=== PATIENT | male | born 1980 | race Caucasian/White ===

== ENCOUNTER 2016-07-14 16:00 | Outpatient (RCR) | payer OTHER ==
[~2016-07-14 16:00] MED LIST: IMIT100T PO; NAPR500T2 PO; NORT25CA2 PO; TOPA50TA PO
== END 2016-07-15 ==
LOC: M OUTALCOH 16:00
PROVIDERS: ATTEND Psychiatry & Neurology Psychiatry
DX: F10.20 Alcohol dependence, uncomplicated (principal)

== ENCOUNTER 2016-08-06 09:00 | Outpatient (RCR) | payer OTHER | END 2016-08-12 | LOC: M OUTALCOH 09:00 | PROVIDERS: ATTEND Psychiatry & Neurology Psychiatry | DX: F10.20 Alcohol dependence, uncomplicated (principal) ==

== ENCOUNTER → 2017-05-25 | Outpatient (CLI) | payer BC ==
--- NOTE | 2017-05-25 14:17 | REP ---
LUMBAR SPINE SERIES: Five views. HISTORY: Low back injury. Pain. FINDINGS: Lumbar vertebral body heights are preserved. No fracture or collapse is seen. There is mild degenerative disc narrowing at L 2-3, L3-4, and L4-5. There is discogenic spurring at L3-4. Pedicles and posterior elements are intact. There is no evidence of spondylolysis or spondylolisthesis. Psoas margins are symmetric. Sacrum and SI joints are intact. IMPRESSION: Degenerative disc disease at the L3-4 L4-5 and L2-3. No other abnormality. Signed by Misael Valdivia MD 05/25/2017 03:04 P
== END ==
LOC: M WUC 12:42
PROVIDERS: ATTEND Physician Assistant
DX: M51.9 Unspecified thoracic, thoracolumbar and lumbosacral intervertebral disc disorder (principal)

== ENCOUNTER 2017-12-26 00:01 | Emergency (ER) | payer BC, OTHER ==
[2017-12-26 01:19] LABS: BASO # 0.1 10^3/uL (0.0-0.2); BASO % 0.6 % (0.0-1.0); EOS # 0.4 10^3/uL (0.0-0.50); EOS % 4.9 % (0.0-3.0); HEMATOCRIT 46.3 % (42.0-52.0); HEMOGLOBIN 15.7 g/dl (13.5-17.5); IMMATURE GRANULOCYTE % 0.3 % (0-3.0); LYMPH # 2.3 10^3/uL (1.5-4.5); LYMPH % 25.8 % (24.0-44.0); MEAN CORPUSCULAR HEMOGLOBIN 31.1 pg (27.0-33.0); MEAN CORPUSCULAR HGB CONC 33.9 g/dl (32.0-36.5); MEAN CORPUSCULAR VOLUME 91.7 fl (80.0-96.0); MONO # 0.5 10^3/uL (0.0-0.8); MONO % 5.2 % (0.0-5.0); NEUTROPHILS # 5.7 10^3/uL (1.8-7.7); NEUTROPHILS % 63.2 % (36.0-66.0); PLATELET COUNT, AUTOMATED 172 10^3/uL (150-450); RED BLOOD COUNT 5.05 10^6/uL (4.30-6.10); RED CELL DISTRIBUTION WIDTH 12.3 % (11.5-14.5); WHITE BLOOD COUNT 9.1 10^3/uL (4.0-10.0)
[2017-12-26] MEDS: ONDANSETRON 4MG/2ML VIAL (J2405) IV (01:28)
[2017-12-26] MEDS: MORPHINE 4 MG/ML 1ML VIAL/SYRINGE (J2270) IV ×2 (01:28→02:03)
[2017-12-26 01:45] LABS: ANION GAP 5 MEQ/L (8-16); BLOOD UREA NITROGEN 17 MG/DL (7-18); C REACTIVE PROTEIN QUANTITATIV < 0.30 MG/DL (0.00-0.30); CALCIUM LEVEL 8.7 MG/DL (8.5-10.1); CARBON DIOXIDE LEVEL 29 MEQ/L (21-32); CHLORIDE LEVEL 108 MEQ/L (98-107); CREATININE FOR GFR 1.19 MG/DL (0.70-1.30); GLOMERULAR FILTRATION RATE > 60.0 (>60); GLUCOSE, FASTING 101 MG/DL (70-100); SODIUM LEVEL 142 MEQ/L (136-145)
[2017-12-26] MEDS ORDERED: ISOVUE-370 76% 100ML VIAL (Q9967) As Ordered (01:50)
[2017-12-26] MEDS: methylPREDNISolone INJ 125 MG/2 ML VIAL (J2930) IV (03:34)
== END 2017-12-26 03:55 | disposition home or self-care (01) ==
LOC: M ED 00:01
DX: R51 Headache (principal); Z79.2 Long term (current) use of antibiotics
CPT/HCPCS: J2270

== ENCOUNTER → 2018-02-03 | Outpatient (CLI) | payer BC, OTHER | LOC: M RAD 15:00 | DX: G50.0 Trigeminal neuralgia (principal); G43.019 Migraine without aura, intractable, without status migrainosus | CPT/HCPCS: 70551 ==

== ENCOUNTER 2018-06-03 06:55 | Day surgery (SDC) | payer BC, OTHER ==
[2018-06-03] MEDS: LR 1,000 ML IV (08:10)
[2018-06-03] MEDS ORDERED: MIDAZOLAM INJ 2 MG/2 ML VIAL (J2250) As Ordered (08:10)
[2018-06-03] MEDS ORDERED: ONDANSETRON 4MG/2ML VIAL (J2405) As Ordered (08:11)
[2018-06-03] MEDS ORDERED: fentaNYL 100 MCG/2 ML INJECTION (J3010) As Ordered (08:11)
[2018-06-03] MEDS ORDERED: dexameTHASONE 4 MG/ML 1ML VIAL (J1100) As Ordered ×2 (08:11)
[2018-06-03] MEDS ORDERED: LIDOCAINE 2% INJ 100 MG/5 ML SDV (FOR ANES.) As Ordered (08:11)
[2018-06-03] MEDS ORDERED: ROCURONIUM BROMIDE 50 MG/5 ML VIAL As Ordered (08:11)
[2018-06-03] MEDS: METHYLENE BLUE 0.5% (5MG/ML) 10 ML AMP (PROVAYBLUE)(Q9968 PER 1MG) As Ordered (09:06)
[2018-06-03] MEDS: EPINEPHrine 1MG/ML INJ 30ML MD-VIAL As Ordered (09:06)
[2018-06-03] MEDS ORDERED: ESMOLOL INJ 100MG/10ML VIAL As Ordered (09:18)
[2018-06-03] MEDS: LIDOCAINE W/EPINEPHRINE 1% 20ML VIAL As Ordered (09:19)
[2018-06-03] MEDS ORDERED: PERCOCET 5MG/325MG TAB As Ordered (09:58)
[2018-06-03] MEDS ORDERED: ONDANSETRON 4MG/2ML VIAL (J2405) IV (10:00)
[2018-06-03] MEDS: PERCOCET 5MG/325MG TAB PO ×2 (10:00→10:37)
[2018-06-03] MEDS ORDERED: LR 1,000 ML IV ×2 (10:00)
[2018-06-03] MEDS ORDERED: ACETAMINOPH W/CODEINE #3 TAB UD PO (10:00)
[2018-06-03] MEDS ORDERED: MORPHINE 10 MG/ML 1ML VIAL (J2270) IV (10:00)
[2018-06-03] MEDS: fentaNYL 100 MCG/2 ML INJECTION (J3010) IV ×4 (10:23→10:40)
== END 2018-06-03 11:37 | disposition home or self-care (01) ==
LOC: M SDC 06:55
DX: J34.2 Deviated nasal septum (principal); R06.83 Snoring; Z72.0 Tobacco use
CPT/HCPCS: 30520

== ENCOUNTER → 2018-08-12 | Outpatient (REF) | payer OTHER ==
[~2018-08-12] MED LIST changes: +APAP/CODEINE; +GABA-845 PO; +PENI500T; +PRED20TA PO
[2018-08-12 12:08] LABS: BASO # 0.1 10^3/uL (0.0-0.2); BASO % 0.9 % (0.0-1.0); EOS # 0.6 10^3/uL (0.0-0.50); EOS % 8.7 % (0.0-3.0); HEMATOCRIT 48.1 % (42.0-52.0); HEMOGLOBIN 16.7 g/dl (13.5-17.5); LYMPH # 2.1 10^3/uL (1.5-4.5); LYMPH % 29.7 % (24.0-44.0); MEAN CORPUSCULAR HEMOGLOBIN 31.4 pg (27.0-33.0); MEAN CORPUSCULAR HGB CONC 34.7 g/dl (32.0-36.5); MEAN CORPUSCULAR VOLUME 90.4 fl (80.0-96.0); MONO # 0.4 10^3/uL (0.0-0.8); NEUTROPHILS # 3.9 10^3/uL (1.8-7.7); NEUTROPHILS % 55.6 % (36.0-66.0); PLATELET COUNT, AUTOMATED 183 10^3/uL (150-450); RED BLOOD COUNT 5.32 10^6/uL (4.30-6.10)
[2018-08-12 12:29] LABS: ALT/SGPT 31 U/L (12-78); BILIRUBIN,TOTAL 0.3 MG/DL (0.2-1.0); BLOOD UREA NITROGEN 12 MG/DL (7-18); CALCIUM LEVEL 8.8 MG/DL (8.5-10.1); CARBON DIOXIDE LEVEL 26 MEQ/L (21-32); CHLORIDE LEVEL 109 MEQ/L (98-107); CREATININE FOR GFR 0.96 MG/DL (0.70-1.30); FOLATE 13.7 NG/ML (>5.4); GLOMERULAR FILTRATION RATE > 60.0 (>60); GLUCOSE, FASTING 89 MG/DL (70-100); POTASSIUM SERUM 4.2 MEQ/L (3.5-5.1); RHEUMATOID FACTOR QUANT < 10.0 IU/ML (<15.0); SODIUM LEVEL 142 MEQ/L (136-145); THYROID STIMULATING HORMONE 0.775 uIU/ML (0.358-3.740); TOTAL PROTEIN 6.9 GM/DL (6.4-8.2); VITAMIN B12 LEVEL 415 PG/ML (247-911)
[2018-08-12 12:37] LABS: ERYTHROCYTE SEDIMENTATION RATE 3 mm/hr (0-15)
[2018-08-12 13:11] LABS: HEMOGLOBIN A1c 5.4 %
== END ==
LOC: M LABDRAW1 10:21
PROVIDERS: ATTEND Psychiatry & Neurology Neurology
DX: R51 Headache (principal); G62.9 Polyneuropathy, unspecified

== ENCOUNTER → 2018-09-12 | Outpatient (CLI) | payer BC, OTHER ==
--- NOTE | 2018-09-16 20:35 | SLEEPCENT ---
DATE OF PROCEDURE: 09/12/2018 ORDERED BY: Kelsey Quiros Nocturnal polysomnography was performed for evaluation of sleep apnea syndrome symptoms in this patient with a history of snoring and excessive somnolence. 6 hours and 54 minutes of data were reviewed. There were 375 minutes of sleep identified. Sleep latency was mildly prolonged at 21 minutes. Rapid eye movement (REM) latency was normal at 83 minutes. Sleep architecture was fairly good with three REM cycles. Overall sleep efficiency 91.5%. The electrocardiogram shows a sinus rhythm with an average heart rate of 64 beats per minute. Rate ranged 58 to 82. EEG showed normal waveforms for awake and sleep. There were 42 respiratory events identified of 10 seconds in duration or greater for an apnea-hypopnea index of 6.7. The events were primarily obstructive, not exclusive to sleep stage nor to body posture. Arousals from respiratory events occurred 12.2 times per hour when snoring arousals were included, and there was some scattered limb activity but limb arousals were few. Oxygen desaturations were seen into the mid 80s. IMPRESSION: Obstructive sleep apnea syndrome (G47.33). Apnea-hypopnea index 6.7. RECOMMENDATIONS: The patient should be considered for pressure therapy or definitive treatment for obstructive sleep apnea syndrome. In the interim, alcohol and sedative avoidance should be practiced and caution exercised during the operation of motor vehicles.
== END ==
LOC: M SLEEP 20:00
PROVIDERS: ATTEND Nurse Practitioner Family
DX: G47.33 Obstructive sleep apnea (adult) (pediatric) (principal)

== ENCOUNTER → 2018-10-25 | Outpatient (CLI) | payer BC, OTHER ==
--- NOTE | 2018-10-27 08:58 | SLEEPCENT ---
DATE OF PROCEDURE: 10/25/2018 ORDERED BY: 10/26/2018 Nocturnal polysomnography was performed for the titration of pressure therapy in this patient with obstructive sleep apnea syndrome. Apnea-hypopnea index 6.7. For testing, a [employer] Overnight FX nasal pillows device was used, 4 cm of water pressure were applied to the circuit, and the lights were extinguished. 7 hours and 54 minutes of data were reviewed. There were 346 minutes of sleep identified. Sleep latency was prolonged and 41 minutes. Rapid eye movement (REM) latency was normal at 73 minutes. Sleep architecture was fair with two to three REM cycles. Overall sleep efficiency was 74.2%. The electrocardiogram showed a sinus rhythm with an average heart rate of 68 beats per minute. Electroencephalogram (EEG) showed normal waveforms for awake and sleep. Respiratory events were best palliated with C-PAP at a pressure of +5. The remaining measures of sleep physiology were normal. IMPRESSION: Obstructive sleep apnea syndrome (G47.33). RECOMMENDATIONS: Nightly use of pressure therapy 5 cm of water.
== END ==
LOC: M SLEEP 20:00
PROVIDERS: ATTEND Nurse Practitioner Family
DX: G47.33 Obstructive sleep apnea (adult) (pediatric) (principal)

== ENCOUNTER → 2019-11-18 | Outpatient (REF) | payer OTHER ==
[2019-11-18 13:48] LABS: CHLAMYDIA DNA AMPLIFICATION NEGATIVE (NEGATIVE); GC DNA AMPLIFICATION NEGATIVE (NEGATIVE)
== END ==
LOC: M LAB REF 11:40
PROVIDERS: ATTEND Physician Assistant
DX: R30.0 Dysuria (principal)

== ENCOUNTER → 2019-11-25 | Outpatient (CLI) | payer BC ==
--- NOTE | 2019-11-25 09:49 | REP ---
SCROTAL ULTRASOUND: Real-time sonographic evaluation of the scrotum and contents performed. The testicles are normal in size and echotexture, right testicle measuring 5.3 x 2.5 x 3.4 cm and left testicle 4.6 x 2.3 x 3.3 cm. There is no testicular mass. There is no torsion of either testicle with duplex Doppler evaluation. There is a cyst in the head of the right epididymis measuring 4 mm. No fluid collection is seen. IMPRESSION: No testicular mass or torsion.
== END ==
LOC: M WHC 08:26
PROVIDERS: ATTEND Physician Assistant
DX: N50.819 Testicular pain, unspecified (principal); R30.0 Dysuria

== ENCOUNTER 2023-05-16 18:05 | Inpatient (IN) | payer BC ==
[~2023-05-16] VITALS: Ht 185.4 cm; Wt 113.6 kg
[~2023-05-16 18:05] MED LIST changes: +GABA-284 PO; -GABA-845 PO
[2023-05-16] MEDS ORDERED: NS 1,000 ML IV ONE (18:40)
[2023-05-16] MEDS ORDERED: MORPHINE 4 MG/ML 1ML VIAL IV ONE (18:40)
[2023-05-16] MEDS ORDERED: LevoFLOXacin IV 750 MG in IV 1 EA IV ONE (18:45)
[2023-05-16] MEDS ORDERED: ACETAMINOPHEN *IV* 1,000 MG in IV 1 EA IV ONE (18:45)
[2023-05-16 19:09] LABS: BASO % 0.3 % (0.0-1.0); EOS # 0.1 10^3/uL (0.0-0.5); EOS % 0.6 % (0.0-3.0); HEMATOCRIT 46.5 % (42.0-52.0); HEMOGLOBIN 16.1 g/dl (13.5-17.5); LYMPH # 1.1 10^3/uL (1.5-5.0); LYMPH % 11.5 % (24.0-44.0); MEAN CORPUSCULAR HEMOGLOBIN 32.5 pg (27.0-33.0); MEAN CORPUSCULAR HGB CONC 34.6 g/dl (32.0-36.5); MEAN CORPUSCULAR VOLUME 93.9 fl (80.0-96.0); MONO # 0.8 10^3/uL (0.0-0.8); MONO % 7.7 % (2.0-8.0); NEUTROPHILS # 7.7 10^3/uL (1.5-8.5); NEUTROPHILS % 79.7 % (36.0-66.0); PLATELET COUNT, AUTOMATED 175 10^3/uL (150-450); RED BLOOD COUNT 4.95 10^6/uL (4.30-6.10); WHITE BLOOD COUNT 9.7 10^3/uL (4.0-10.0)
[2023-05-16] MEDS ORDERED: ISOVUE-370 76% 100ML VIAL As Ordered ONE (19:13)
[2023-05-16 19:29] LABS: INR 1.03; PROTHROMBIN TIME 13.2 SECONDS (12.5-14.5)
[2023-05-16 19:38] LABS: LIPASE 25 U/L (12-53)
[2023-05-16 19:40] LABS: ALBUMIN 3.7 G/DL (3.2-5.2); ALKALINE PHOSPHATASE 68 U/L (46-116); ALT/SGPT 31 U/L (7.0-40); AST/SGOT 12 U/L (<34); BILIRUBIN,DIRECT 0.3 MG/DL (<0.4); BLOOD UREA NITROGEN 12 MG/DL (9-23); CALCIUM LEVEL 9.1 MG/DL (8.5-10.1); CARBON DIOXIDE LEVEL 24 MMOL/L (20-31); CHLORIDE LEVEL 108 MMOL/L (98-107); CREATININE FOR GFR 1.09 MG/DL (0.70-1.30); GLOMERULAR FILTRATION RATE > 60.0 (>60); GLUCOSE, FASTING 121 MG/DL (60-100); POTASSIUM SERUM 3.9 MMOL/L (3.5-5.1); SODIUM LEVEL 142 MMOL/L (136-145); TOTAL PROTEIN 6.6 G/DL (5.7-8.2)
[2023-05-16] MEDS ORDERED: metroNIDAZOLE 500 MG in IV 1 EA IV ONE (19:55)
[2023-05-16] MEDS ORDERED: HOME MED LIST COMPLETE! XX SCH (20:00)
[2023-05-16] MEDS ORDERED: ONDANSETRON 4MG 2ML VIAL IV PRN (20:05)
[2023-05-16] MEDS ORDERED: KETOROLAC 30 MG/ML 1ML VIAL IV PRN (20:05)
[2023-05-16] MEDS ORDERED: PANTOPRAZOLE 40MG VIAL IV SCH (21:00)
[2023-05-16 22:24] VITALS: TEMP 97.4
[2023-05-16] MEDS: LR 1,000 ML IV SCH (23:25)
[2023-05-17] MEDS ORDERED: ACETAMINOPHEN 500 MG TAB PO PRN (02:00)
[2023-05-17] MEDS: LR 1,000 ML IV SCH ×2 (04:05→07:28)
[2023-05-17] MEDS ORDERED: metroNIDAZOLE 500 MG in IV 1 EA IV SCH (06:00)
[2023-05-17 06:55] LABS: HEMATOCRIT 44.3 % (42.0-52.0); MEAN CORPUSCULAR HEMOGLOBIN 32.2 pg (27.0-33.0); MEAN CORPUSCULAR HGB CONC 33.9 g/dl (32.0-36.5); MEAN CORPUSCULAR VOLUME 95.1 fl (80.0-96.0); PLATELET COUNT, AUTOMATED 151 10^3/uL (150-450); RED BLOOD COUNT 4.66 10^6/uL (4.30-6.10); WHITE BLOOD COUNT 7.4 10^3/uL (4.0-10.0)
[2023-05-17 07:00] VITALS: BP 126/74; O2SAT 94
[2023-05-17 07:13] LABS: BLOOD UREA NITROGEN 9 MG/DL (9-23); CALCIUM LEVEL 8.4 MG/DL (8.5-10.1); CARBON DIOXIDE LEVEL 26 MMOL/L (20-31); CHLORIDE LEVEL 108 MMOL/L (98-107); CREATININE FOR GFR 0.92 MG/DL (0.70-1.30); GLOMERULAR FILTRATION RATE > 60.0 (>60); GLUCOSE, FASTING 94 MG/DL (60-100); POTASSIUM SERUM 4.1 MMOL/L (3.5-5.1); SODIUM LEVEL 141 MMOL/L (136-145)
[2023-05-17] MEDS ORDERED: ENOXAPARIN 40MG/0.4ML SYRINGE (J1650 PER 10MG) SC SCH (09:00)
[2023-05-17] MEDS ORDERED: LEVO1TAB40 PO (12:12)
[2023-05-17] MEDS ORDERED: OXYC1TAB23 PO (12:12)
[2023-05-17] MEDS ORDERED: METR-265 PO (12:12)
[2023-05-17] MEDS ORDERED: LevoFLOXacin IV 750 MG in IV 1 EA IV SCH (20:00)
== END 2023-05-17 12:15 | disposition home or self-care (01) | DRG 244 ==
LOC: M ED 18:05 → M ED INP 20:05
PROVIDERS: ADMIT Internal Medicine Nephrology; ATTEND Internal Medicine Nephrology
DX: K57.32 Diverticulitis of large intestine without perforation or abscess without bleeding (principal); K76.0 Fatty (change of) liver, not elsewhere classified; E66.9 Obesity, unspecified; G47.33 Obstructive sleep apnea (adult) (pediatric); K44.9 Diaphragmatic hernia without obstruction or gangrene; M54.50 Low back pain, unspecified; G89.29 Other chronic pain; Z20.822 Contact with and (suspected) exposure to COVID-19

== ENCOUNTER → 2023-05-19 | Outpatient (REF) | payer BC ==
[~2023-05-19] MED LIST changes: +LEVO1TAB40 PO; +METR-265 PO; +OXYC1TAB23 PO
[2023-05-19 17:12] LABS: BASO % 0.8 % (0.0-1.0); EOS # 0.2 10^3/uL (0.0-0.5); EOS % 3.9 % (0.0-3.0); HEMATOCRIT 47.5 % (42.0-52.0); LYMPH # 1.3 10^3/uL (1.5-5.0); LYMPH % 33.2 % (24.0-44.0); MEAN CORPUSCULAR HEMOGLOBIN 31.9 pg (27.0-33.0); MEAN CORPUSCULAR HGB CONC 33.7 g/dl (32.0-36.5); MEAN CORPUSCULAR VOLUME 94.8 fl (80.0-96.0); MONO # 0.4 10^3/uL (0.0-0.8); MONO % 9.4 % (2.0-8.0); NEUTROPHILS % 52.4 % (36.0-66.0); PLATELET COUNT, AUTOMATED 212 10^3/uL (150-450); RED BLOOD COUNT 5.01 10^6/uL (4.30-6.10); WHITE BLOOD COUNT 3.9 10^3/uL (4.0-10.0)
[2023-05-19 17:39] LABS: CHOLESTEROL LEVEL 205 MG/DL (<200); CHOLESTEROL RISK RATIO 4.33 (<5); HDL CHOLESTEROL 47.3 MG/DL (>40); LDL CHOLESTEROL 136.5 MG/DL (<100); NON-HDL-C 157.7 MG/DL; TRIGLYCERIDES LEVEL 106 MG/DL (<150)
[2023-05-19 17:41] LABS: THYROID STIMULATING HORMONE 2.578 uIU/ML (0.55-4.78)
[2023-05-19 17:42] LABS: TOTAL 25(OH) VITAMIN D 8.8 NG/ML (20.0-100.0)
== END ==
LOC: M LAB REF 16:27
PROVIDERS: ATTEND Nurse Practitioner Family
DX: R53.83 Other fatigue (principal); E66.3 Overweight; Z11.9 Encounter for screening for infectious and parasitic diseases, unspecified; E55.9 Vitamin D deficiency, unspecified

== ENCOUNTER 2023-11-16 20:55 | Emergency (ER) | payer BC ==
[~2023-11-16] VITALS: Ht 185.4 cm; Wt 116.4 kg
[2023-11-16 22:10] LABS: BASO % 0.5 % (0.0-1.0); EOS # 0.2 10^3/uL (0.0-0.5); HEMATOCRIT 47.8 % (42.0-52.0); HEMOGLOBIN 16.3 g/dl (13.5-17.5); LYMPH # 1.4 10^3/uL (1.5-5.0); LYMPH % 16.6 % (24.0-44.0); MEAN CORPUSCULAR HEMOGLOBIN 32.9 pg (27.0-33.0); MEAN CORPUSCULAR HGB CONC 34.1 g/dl (32.0-36.5); MEAN CORPUSCULAR VOLUME 96.6 fl (80.0-96.0); MONO # 0.7 10^3/uL (0.0-0.8); MONO % 8.1 % (2.0-8.0); NEUTROPHILS # 6.2 10^3/uL (1.5-8.5); NEUTROPHILS % 72.6 % (36.0-66.0); PLATELET COUNT, AUTOMATED 171 10^3/uL (150-450); RED BLOOD COUNT 4.95 10^6/uL (4.30-6.10); WHITE BLOOD COUNT 8.6 10^3/uL (4.0-10.0)
[2023-11-16 22:29] LABS: INR 0.95; PROTHROMBIN TIME 12.4 SECONDS (12.5-14.5)
[2023-11-16 22:31] LABS: LIPASE 29 U/L (12-53)
[2023-11-16 22:34] LABS: ALBUMIN 3.9 G/DL (3.2-5.2); ALKALINE PHOSPHATASE 91 U/L (46-116); ALT/SGPT 54 U/L (7.0-40); AST/SGOT 22 U/L (<34); BILIRUBIN,DIRECT 0.2 MG/DL (<0.4); BILIRUBIN,TOTAL 0.6 MG/DL (0.3-1.2); BLOOD UREA NITROGEN 13 MG/DL (9-23); CALCIUM LEVEL 9.8 MG/DL (8.5-10.1); CARBON DIOXIDE LEVEL 30 MMOL/L (20-31); CHLORIDE LEVEL 102 MMOL/L (98-107); CREATININE FOR GFR 1.13 MG/DL (0.70-1.30); GLOMERULAR FILTRATION RATE > 60.0 (>60); GLUCOSE, FASTING 88 MG/DL (60-100); POTASSIUM SERUM 4.1 MMOL/L (3.5-5.1); SODIUM LEVEL 138 MMOL/L (136-145); TOTAL PROTEIN 6.7 G/DL (5.7-8.2)
[2023-11-16 23:53] LABS: INR 0.97; PROTHROMBIN TIME 12.6 SECONDS (12.5-14.5)
[2023-11-17] MEDS: SUCRALFATE 1 GM TAB PO ONE (00:11)
[2023-11-17] MEDS: NS 1,000 ML IV ONE (00:11)
[2023-11-17] MEDS: PANTOPRAZOLE 40MG VIAL IV ONE (00:11)
[2023-11-17] MEDS ORDERED: ISOVUE-370 76% 100ML VIAL As Ordered ONE (00:41)
[2023-11-17] MEDS ORDERED: AMOX875T2 PO (02:24)
[2023-11-17] MEDS ORDERED: PEPC1TAB5 PO (02:24)
[2023-11-17] MEDS: AUGMENTIN 875 MG TAB PO ONE (02:45)
[2023-11-17 02:51] VITALS: BP 136/74; TEMP 98.9; O2SAT 98
== END 2023-11-17 02:59 | disposition home or self-care (01) ==
LOC: M ED 20:55
DX: K57.32 Diverticulitis of large intestine without perforation or abscess without bleeding (principal); K29.70 Gastritis, unspecified, without bleeding; K76.0 Fatty (change of) liver, not elsewhere classified; Z79.2 Long term (current) use of antibiotics; Z79.899 Other long term (current) drug therapy
CPT/HCPCS: 74177; 80048; 80076; 83690; 85025; 85610; 85730; 86850; 86900; 86901; 93041; 96361; 96374; 99285; C9113; Q9967

== ENCOUNTER 2023-11-24 16:06 | Emergency (ER) | payer BC ==
[~2023-11-24] VITALS: Ht 185.4 cm; Wt 117.0 kg
[~2023-11-24 16:06] MED LIST changes: +AMOX875T2 PO; +PEPC1TAB5 PO
[2023-11-24] MEDS ORDERED: PROB250C PO (16:20)
[2023-11-24 16:44] LABS: BASO % 0.3 % (0.0-1.0); EOS # 0.1 10^3/uL (0.0-0.5); EOS % 0.9 % (0.0-3.0); HEMATOCRIT 47.1 % (42.0-52.0); HEMOGLOBIN 16.2 g/dl (13.5-17.5); LYMPH # 1.3 10^3/uL (1.5-5.0); LYMPH % 12.9 % (24.0-44.0); MEAN CORPUSCULAR HEMOGLOBIN 33.3 pg (27.0-33.0); MEAN CORPUSCULAR HGB CONC 34.4 g/dl (32.0-36.5); MEAN CORPUSCULAR VOLUME 96.7 fl (80.0-96.0); MONO # 1.1 10^3/uL (0.0-0.8); MONO % 10.4 % (2.0-8.0); NEUTROPHILS # 7.6 10^3/uL (1.5-8.5); NEUTROPHILS % 75.2 % (36.0-66.0); PLATELET COUNT, AUTOMATED 196 10^3/uL (150-450); RED BLOOD COUNT 4.87 10^6/uL (4.30-6.10); WHITE BLOOD COUNT 10.2 10^3/uL (4.0-10.0)
[2023-11-24] MEDS: NS 1,000 ML IV SCH (16:47)
[2023-11-24] MEDS: ONDANSETRON 4MG 2ML VIAL IV ONE (16:47)
[2023-11-24] MEDS: MORPHINE 4 MG/ML 1ML VIAL IV ONE (16:47)
[2023-11-24] MEDS: CIPROFLOXACIN 400 MG in IV 1 EA IV ONE (16:47)
[2023-11-24 17:07] LABS: ALBUMIN 3.5 G/DL (3.2-5.2); BILIRUBIN,DIRECT 0.2 MG/DL (<0.4); BILIRUBIN,TOTAL 0.8 MG/DL (0.3-1.2); TOTAL PROTEIN 6.8 G/DL (5.7-8.2)
[2023-11-24] MEDS ORDERED: CIPR-249 PO (18:02)
[2023-11-24] MEDS ORDERED: FLAG375C PO (18:02)
[2023-11-24 18:13] LABS: INR 1.08; PROTHROMBIN TIME 13.7 SECONDS (12.5-14.5)
[2023-11-24] MEDS: metroNIDAZOLE 500 MG in IV 1 EA IV ONE (18:24)
[2023-11-24 19:34] VITALS: BP 134/80; TEMP 98.6; O2SAT 97
== END 2023-11-24 19:37 | disposition home or self-care (01) ==
LOC: M ED 16:06
DX: K57.32 Diverticulitis of large intestine without perforation or abscess without bleeding (principal); K76.0 Fatty (change of) liver, not elsewhere classified; Z87.19 Personal history of other diseases of the digestive system; F17.200 Nicotine dependence, unspecified, uncomplicated
CPT/HCPCS: 74176; 80047; 80076; 81001; 83690; 85025; 85610; 96365; 96366; 96367; 96375; 99284; J0744; J1836; J2405

== ENCOUNTER 2024-01-07 08:14 | Day surgery (SDC) | payer BC ==
[~2024-01-07] VITALS: Ht 185.4 cm; Wt 116.6 kg
[~2024-01-07 08:14] MED LIST changes: +CIPR-249 PO; +FLAG375C PO; +PROB250C PO
[2024-01-07] MEDS: NS 1,000 ML IV ONE (08:41)
[2024-01-07] MEDS ORDERED: propofoL 200 MG/20 ML VIAL As Ordered ONE (09:19)
[2024-01-07] MEDS ORDERED: fentaNYL 100 MCG/2 ML INJECTION As Ordered ONE (09:19)
[2024-01-07] MEDS ORDERED: LIDOCAINE 2% 100MG/5ML SDV (FOR ANES.) As Ordered ONE (09:19)
[2024-01-07 09:38] VITALS: TEMP 98.1
[2024-01-07 10:00] VITALS: BP 135/78; O2SAT 94
== END 2024-01-07 10:09 | disposition home or self-care (01) ==
LOC: M OPP 08:14
PROVIDERS: ATTEND Surgery
DX: K21.00 Gastro-esophageal reflux disease with esophagitis, without bleeding (principal); K29.80 Duodenitis without bleeding; K29.70 Gastritis, unspecified, without bleeding; K22.70 Barrett's esophagus without dysplasia; R10.84 Generalized abdominal pain; K57.32 Diverticulitis of large intestine without perforation or abscess without bleeding; K57.30 Diverticulosis of large intestine without perforation or abscess without bleeding; G47.30 Sleep apnea, unspecified; Z79.1 Long term (current) use of non-steroidal anti-inflammatories (NSAID); Z79.2 Long term (current) use of antibiotics
CPT/HCPCS: 43239; 88305; J3010

== ENCOUNTER → 2025-02-20 | Outpatient (CLI) | payer BC ==
[2025-02-20 18:16] LABS: ALT/SGPT 72.0 U/L (7.0-40); AST/SGOT 41.0 U/L (<34); CALCIUM LEVEL 10.1 MG/DL (8.5-10.1); CARBON DIOXIDE LEVEL 28.0 MMOL/L (20-31); CHLORIDE LEVEL 103.0 MMOL/L (98-107); CREATININE FOR GFR 1.26 MG/DL (0.70-1.30); FREE T4 1.28 NG/DL (0.89-1.76); GLOMERULAR FILTRATION RATE 71.2 (>60); POTASSIUM SERUM 4.4 MMOL/L (3.5-5.1); SODIUM LEVEL 142.0 MMOL/L (136-145)
[2025-02-20 18:17] LABS: BASO # 0.0 10^3/uL (0.0-0.2); BASO % 0.8 % (0.0-1.0); EOS # 0.1 10^3/uL (0.0-0.5); EOS % 2.1 % (0.0-3.0); LYMPH # 1.4 10^3/uL (1.5-5.0); LYMPH % 25.8 % (24.0-44.0); MONO # 0.5 10^3/uL (0.0-0.8); MONO % 9.2 % (2.0-8.0); NEUTROPHILS # 3.2 10^3/uL (1.5-8.5); NEUTROPHILS % 61.7 % (36.0-66.0); PLATELET COUNT, AUTOMATED 196 10^3/uL (150-450); RHEUMATOID FACTOR QUANT 6.5 IU/ML (<14)
== END ==
LOC: M WUC 14:46
PROVIDERS: ATTEND Nurse Practitioner Family
DX: M79.10 Myalgia, unspecified site (principal); R53.83 Other fatigue